=== PATIENT | female | born 1975 | race Caucasian/White ===

== ENCOUNTER 2024-11-24 17:26 | Emergency (ER) | payer SELFPAY ==
[~2024-11-24] VITALS: Ht 154.9 cm; Wt 59.0 kg
[2024-11-24 17:28] VITALS: BP 136/79; PULSE 90; RESP 18; TEMP 36.8; O2SAT 98
[2024-11-24 18:44] VITALS: TEMP 98.2
[2024-11-24] MEDS: ACETAMINOPHEN 325MG TABLET PO ONE (18:44)
[2024-11-24] MEDS ORDERED: ACET-2708 MT (19:22)
== END 2024-11-24 19:28 | disposition home or self-care (01) ==
LOC: ER 17:26
DX: M79.605 Pain in left leg (principal); K13.79 Other lesions of oral mucosa; E11.9 Type 2 diabetes mellitus without complications
CPT/HCPCS: 73590; 99283